=== PATIENT | male | born 1960 | race Caucasian/White ===

== ENCOUNTER 2019-10-06 15:00 | Outpatient (RCR) | payer OTHER | END 2019-10-09 | disposition still patient (30) | LOC: PT | DX: Z98.890 Other specified postprocedural states (principal) ==

== ENCOUNTER 2019-11-09 15:00 | Outpatient (RCR) | payer OTHER | END 2019-11-09 15:30 | disposition still patient (30) | LOC: PT 15:00 | DX: Z98.890 Other specified postprocedural states (principal) ==

== ENCOUNTER 2022-07-14 09:31 | Outpatient (RCR) | payer OTHER | END 2022-07-15 | LOC: PT | DX: M25.571 Pain in right ankle and joints of right foot (principal) ==

== ENCOUNTER 2022-08-13 08:00 | Outpatient (RCR) | payer OTHER | END 2022-08-27 16:16 | LOC: PT 08:00 | DX: M25.571 Pain in right ankle and joints of right foot (principal) ==